=== PATIENT | female | born 1965 | race Caucasian/White ===

== ENCOUNTER 2020-03-25 00:39 | Emergency (ER) | payer OTHER ==
[~2020-03-25] VITALS: Ht 165.1 cm; Wt 56.7 kg
[2020-03-25 02:17] VITALS: BP 128/79
--- NOTE | 2020-03-25 02:44 | NUR ---
pt left before being seen by er provider. pt walked out
== END 2020-03-25 02:47 | disposition left against medical advice (07) ==
LOC: ER 00:43
DX: Z53.21 Procedure and treatment not carried out due to patient leaving prior to being seen by health care provider (principal); R22.42 Localized swelling, mass and lump, left lower limb; Z98.890 Other specified postprocedural states